=== PATIENT | male | born 1960 | race Caucasian/White ===

== ENCOUNTER 2021-04-25 09:38 | Emergency (ER) | payer OTHER ==
[~2021-04-25] VITALS: Ht 188 cm; Wt 88.0 kg
[2021-04-25] MEDS ORDERED: buprenorphine/naloxone 8MG-2MG SUBlingual film SL STA ×2 (09:42→10:04)
[2021-04-25 09:43] VITALS: BP 153/92
--- NOTE | 2021-04-25 10:04 | NUR ---
spoke to kyleea pharmacist and informed that only one suboxone film pulled from the [facility] and needed the 2 nd film but unable to pull out as per jez he will fix it and order another one.
== END 2021-04-25 11:03 | disposition home or self-care (01) ==
LOC: ER 09:39
DX: S40.011A Contusion of right shoulder, initial encounter (principal); S80.01XA Contusion of right knee, initial encounter; M79.604 Pain in right leg; F11.23 Opioid dependence with withdrawal; Z72.89 Other problems related to lifestyle; X58.XXXA Exposure to other specified factors, initial encounter; Y93.89 Activity, other specified; Y92.89 Other specified places as the place of occurrence of the external cause; Y99.8 Other external cause status
CPT/HCPCS: 73030; 73564; 99284